=== PATIENT | male | born 1985 | race Two or more races ===

== ENCOUNTER 2023-05-31 22:40 | Emergency (ER) | payer MEDICAID, OTHER ==
[~2023-05-31] VITALS: Ht 188 cm; Wt 117.9 kg
[~2023-05-31 22:40] MED LIST: IBUP-1955 PO; OMEP40CA21 PO
[2023-06-01] MEDS ORDERED: KETOROLAC TROMETHAMINE 15 MG INJ ONE (01:14)
[2023-06-01] MEDS: KETOROLAC TROMETHAMINE 15 MG INJ IM ONE (01:20)
[2023-06-01] MEDS ORDERED: IBUP-1955 PO (02:18)
[2023-06-01 02:40] VITALS: BP 141/75; TEMP 98; O2SAT 98
== END 2023-06-01 02:41 | disposition home or self-care (01) ==
LOC: ER 22:48
DX: S16.1XXA Strain of muscle, fascia and tendon at neck level, initial encounter (principal); S39.012A Strain of muscle, fascia and tendon of lower back, initial encounter; S09.90XA Unspecified injury of head, initial encounter; K21.9 Gastro-esophageal reflux disease without esophagitis; F17.210 Nicotine dependence, cigarettes, uncomplicated; Z79.1 Long term (current) use of non-steroidal anti-inflammatories (NSAID); Z79.899 Other long term (current) drug therapy; V43.52XA Car driver injured in collision with other type car in traffic accident, initial encounter; Y93.89 Activity, other specified; Y92.410 Unspecified street and highway as the place of occurrence of the external cause; Y99.8 Other external cause status
CPT/HCPCS: 99285; 70450; 96374; 72125; 72131; J1885; A4663